=== PATIENT | male | born 1980 | race Two or more races ===

== ENCOUNTER 2022-05-04 17:32 | Emergency (ER) | payer MEDICAID ==
[~2022-05-04] VITALS: Ht 170.2 cm; Wt 80.6 kg
[2022-05-04 17:37] VITALS: BP 141/91
[2022-05-04] MEDS ORDERED: LIDOcaine 1% 30ml preserv. free vial IJ STA (19:33)
== END 2022-05-04 20:30 | disposition home or self-care (01) ==
LOC: ER 17:33
DX: S31.21XA Laceration without foreign body of penis, initial encounter (principal); X58.XXXA Exposure to other specified factors, initial encounter; Y93.89 Activity, other specified; Y92.89 Other specified places as the place of occurrence of the external cause; Y99.8 Other external cause status
CPT/HCPCS: 54450; 99281; 99284; A6258; A6449

== ENCOUNTER 2022-06-08 17:15 | Emergency (ER) | payer MEDICAID ==
[~2022-06-08] VITALS: Ht 157.5 cm; Wt 85.0 kg
[2022-06-08 17:31] VITALS: BP 136/96
== END 2022-06-08 18:17 | disposition home or self-care (01) ==
LOC: ER 17:16
DX: M77.12 Lateral epicondylitis, left elbow (principal)
CPT/HCPCS: 99282

== ENCOUNTER 2022-09-23 18:24 | Emergency (ER) | payer MEDICAID ==
[~2022-09-23] VITALS: Ht 170.2 cm; Wt 85.0 kg
[2022-09-23 18:42] VITALS: BP 128/83
== END 2022-09-23 21:32 | disposition home or self-care (01) ==
LOC: ER 18:25
DX: H93.8X3 Other specified disorders of ear, bilateral (principal)
CPT/HCPCS: 99281

== ENCOUNTER 2023-06-03 18:54 | Emergency (ER) | payer MEDICAID ==
[~2023-06-03] VITALS: Ht 170.2 cm; Wt 81.8 kg
[2023-06-03 19:07] VITALS: BP 123/83; PULSE 77; RESP 14; TEMP 97.8; O2SAT 95
[2023-06-03] MEDS ORDERED: CYCL-1 PO (21:50)
[2023-06-03] MEDS ORDERED: NAPR-1154 PO (21:50)
[2023-06-03] MEDS ORDERED: ketorolac trometh inj. 60 MG/2 ML VIAL IM ONE (21:55)
== END 2023-06-03 22:06 | disposition home or self-care (01) ==
LOC: ER 18:55
DX: S39.012A Strain of muscle, fascia and tendon of lower back, initial encounter (principal); Z79.899 Other long term (current) drug therapy; W19.XXXA Unspecified fall, initial encounter; Y93.89 Activity, other specified; Y92.89 Other specified places as the place of occurrence of the external cause; Y99.8 Other external cause status
CPT/HCPCS: 72100; 96372; 99284; J1885